=== PATIENT | female | born 1970 | race American Indian/Alaskan Native ===

== ENCOUNTER 2018-05-25 23:24 | Observation (INO) | payer MEDICAID ==
[2018-05-26 00:18] VITALS: O2SAT 97
[2018-05-26] MEDS ORDERED: Sodium Chloride 0.9% 1,000 ML IV STA (00:42)
--- NOTE | 2018-05-26 00:44 | ED PDOC ---
Arrival/HPI - General Chief Complaint: Dizziness/Lightheaded Time Seen by Provider: 05/26/18 00:31 Historian: Patient - History of Present Illness Narrative History of Present Illness (Text): 05/26/18 00:44 47 year old female smoker, whose past medical history includes anemia and HIV (viral load undetectable, CD4 700+), presents to the emergency department with lightheadedness and cough, for 2 days. Patient states on her way to work today, she felt very weak in her legs and entire body. Patient states she has not been eating well. Also reports heavy periods for the last 3 months but not currently on period now. Patient informs she took dayquil earlier today for her symptoms. Patient denies any headache, chest pain, shortness of breath, abdominal pain, nausea, vomiting, diarrhea, back pain, neck pain, or any other complaint. Time/Duration: Prior to Arrival, < week (2 days) Symptom Onset: Gradual Symptom Course: Unchanged Quality: Other Activities at Onset: Light Context: Walking Past Medical History - Provider Review Nursing Documentation Reviewed: Yes - Infectious Disease Hx of Infectious Diseases: None - Cardiac Hx Cardiac Disorders: No - Pulmonary Hx Respiratory Disorders: Yes Hx Asthma: Yes - Neurological Hx Neurological Disorder: No - HEENT Hx HEENT Disorder: No - Renal Hx Renal Disorder: No - Endocrine/Metabolic Hx Endocrine Disorders: No - Hematological/Oncological Hx Blood Disorders: Yes Hx Anemia: Yes - Integumentary Hx Dermatological Disorder: No - Musculoskeletal/Rheumatological Hx Musculoskeletal Disorders: No - Gastrointestinal Hx Gastrointestinal Disorders: No - Genitourinary/Gynecological Hx Genitourinary Disorders: No - Psychiatric Hx Psychophysiologic Disorder: No Hx Substance Use: No Family/Social History - Physician Review Nursing Documentation Reviewed: Yes Family/Social History: No Known Family HX Smoking Status: Heavy Smoker > 10 Cigarettes Daily Hx Alcohol Use: Yes Frequency of alcohol use: Socially Hx Substance Use: No Allergies/Home Meds Allergies/Adverse Reactions: Allergies Penicillins Allergy (Verified 05/26/18 00:18) URTICARIA Home Medications: Home Meds Medication Instructions Recorded Confirmed Albuterol HFA [Ventolin HFA 90 2 puff INH PRN PRN 05/26/18 05/26/18 mcg/actuation (8 g)] Emtricitab/Rilpiviri/Tenof [place] 1 tab PO DAILY 05/26/18 05/26/18 [Odefsey Tablet] Review of Systems - Physician Review All systems were reviewed & negative as marked: Yes - Review of Systems Respiratory: absent: SOB Neurological: absent: Headache Physical Exam Vital Signs Reviewed: Yes Vital Signs Temp Pulse Resp BP Pulse Ox 05/26/18 00:17 98.2 F 108 H 16 113/74 97 Temperature: Afebrile Blood Pressure: Normal Pulse: Tachycardic Respiratory Rate: Normal Appearance: Positive for: Well-Appearing, Non-Toxic, Comfortable Pain Distress: None Mental Status: Positive for: Alert and Oriented X 3 - Systems Exam Head: Present: Atraumatic, Normocephalic Pupils: Present: PERRL Extroacular Muscles: Present: EOMI Conjunctiva: Present: Normal Mouth: Present: Moist Mucous Membranes Neck: Present: Normal Range of Motion Respiratory/Chest: Present: Clear to Auscultation, Good Air Exchange. No: Respiratory Distress, Accessory Muscle Use Cardiovascular: Present: Normal S1, S2, Tachycardic. No: Murmurs Abdomen: No: Tenderness, Distention, Peritoneal Signs Back: Present: Normal Inspection Upper Extremity: Present: Normal Inspection. No: Cyanosis, Edema Lower Extremity: Present: Normal Inspection. No: Edema Neurological: Present: GCS=15, CN II-XII Intact, Speech Normal Skin: Present: Warm, Dry, Normal Color. No: Rashes Psychiatric: Present: Alert, Oriented x 3, Normal Insight, Normal Concentration Medical Decision Making ED Course and Treatment: 05/26/18 00:51 Impression: 47 year old female presents with dizziness, cough, and weakness. Plan: -- CMP -- CBC -- Chest X-ray -- Urine Culture -- Michaelfuenza A Paul -- Urinalysis -- Reassess and disposition Prior Visits: Notes and results from previous visits were reviewed. Progress Notes: 05/26/18 00:53 EKG reviewed by me, shows: Sinus tachycardia @106 bpm No STT wave changes CXR no acute disease. Patient with symptomatic anemia, will transfuse. Consented for blood transfusion. Dr. Benitez accepts to hospitalist service. - RAD Interpretation Radiology Orders: 05/26/18 00:42 CHEST PORTABLE [RAD] Stat - Medication Orders Current Medication Orders: Sodium Chloride (Sodium Chloride 0.9%) 1,000 mls @ 999 mls/hr IV .Q1H1M STA Stop: 05/26/18 01:42 Ketorolac Tromethamine (Toradol) 30 mg IVP STAT STA Stop: 05/26/18 00:43 - Scribe Statement The provider has reviewed the documentation as recorded by the Fernando Ledbetter Provider Scribe Attestation: All medical record entries made by the Scribe were at my direction and personally dictated by me. I have reviewed the chart and agree that the record accurately reflects my personal performance of the history, physical exam, medical decision making, and the department course for this patient. I have also personally directed, reviewed, and agree with the discharge instructions and disposition. Disposition/Present on Arrival - Present on Arrival Any Indicators Present on Arrival: No History of DVT/PE: No History of Uncontrolled Diabetes: No Urinary Catheter: No History of Decub. Ulcer: No History Surgical Site Infection Following: None - Disposition Have Diagnosis and Disposition been Completed?: Yes Diagnosis: Symptomatic anemia Disposition: HOSPITALIZED Disposition Time: 02:20 Patient Plan: Observation Condition: FAIR
[2018-05-26 01:15] LABS: URINE BILIRUBIN NEGATIVE (NEGATIVE); URINE BLOOD NEGATIVE (NEGATIVE); URINE GLUCOSE (UA) NEGATIVE (NEGATIVE); URINE LEUKOCYTE ESTERASE NEGATIVE Leu/uL (NEGATIVE); URINE PROTEIN TRACE mg/dL (<30 mg/dL); URINE UROBILINOGEN 0.2 E.U./dL (<1 E.U./dL)
[2018-05-26 01:18] LABS: BASO # 0.01 K/mm3 (0.0-2.0); BASO % 0.2 % (0.0-3.0); EOS % 0.7 % (1.5-5.0); GRAN # 2.29 (1.4-6.5); GRAN % 54.3 % (50.0-68.0); LYMPH # 1.4 (1.2-3.4); LYMPH % 33.2 % (22.0-35.0); MEAN CELL VOLUME 65.1 fl (80.0-105.0); MEAN CORPUSCULAR HEMOGLOBIN 18.1 pg (25.0-35.0); MEAN CORPUSCULAR HGB CONC 27.9 g/dl (31.0-37.0); MONO # 0.5 (0.1-0.6); MONO % 11.6 % (1.0-6.0); PLATELET COUNT 66 10^3/uL (120.0-450.0); RBC 4.96 10^6/uL (3.5-6.1); RED CELL DISTRIBUTION WIDTH 19.6 % (11.5-14.5); WHITE BLOOD COUNT 4.2 10^3/uL (4.5-11.0)
[2018-05-26 01:20] LABS: URINE APPEARANCE CLEAR (CLEAR); URINE COLOR YELLOW (YELLOW)
[2018-05-26 01:22] LABS: URINE BACTERIA FEW /hpf; URINE CALCIUM OXALATE CRYSTALS OCC /hpf; URINE EPITHELIAL CELLS MANY /hpf (0-5); URINE RBC 0 - 2 /hpf (0-2); URINE WBC 0 - 2 /hpf (0-6)
[2018-05-26 01:23] LABS: HCG,QUALITATIVE URINE NEGATIVE (NEGATIVE)
[2018-05-26 01:27] LABS: ALB/GLOB RATIO 1.1 (1.1-1.8); ALBUMIN 4.5 g/dL (3.0-4.8); ALT/SGPT 37 U/L (7-56); AST/SGOT 46 U/L (14-36); BLOOD UREA NITROGEN 10 mg/dL (7-21); CALCIUM 9.3 mg/dL (8.4-10.5); GFR NON-AFRICAN AMERICAN > 60
--- NOTE | 2018-05-26 02:40 | CP.PCM.HP ---
<Ruy Harris - Last Filed: 05/26/18 06:34> History of Present Illness - History of Present Illness History of Present Illness: PGY-1 H&P for Dr. Benitez CC: Dizziness and generalized fatigue HPI: Patient is a 47 year old female with past medical history of iron deficiency anemia, HIV on HAART, and asthma, who is presenting with dizziness and fatigue. Patient states that she started having these symptoms 3 days ago. Patient took Dayquil today without relief. Patient also states that the symptoms worsen when she got out of the shower. She also noticed today that her legs were feeling weak when she was walking to work. She also admits to having a cough and feels light-headed when she coughs too much. Patient states that she sees Dr. Valdez for her anemia and that her last iron transfusion was 1 year ago. She admits to be craving ice cubes all the time. She also states that her last menstrual period was 10 days ago with heavy flow. She states that her periods are usually heavy. Patient also complains of 2 episodes of watery diarrhea that started yesterday. She denies recent antibiotics used or ate food out of the ordinary. Patient states that she is compliant with her HIV medications. Patient also admits to having some shortness of breath and states that she has had it for more than 3 months. Patient denies any fevers, chills, chest pain, abdominal pain, nausea, vomiting, back pain, neck pain, or urinary symptoms. 12 system ROS reviewed and negative except mentioned in HPI. Medical History: HIV on HAART (viral load undetectable) as per patient CD4 of 745 6 months ago, anemia, and asthma Surgical History: denies Allergies: PCN Social History: Smokes 5 cigarettes per day for 5 years, drinks wine occasionally, denies drug use. Family History: maternal grandmother has diabetes OB history: Last menstrual period: 05/16/2018, with heavy flow. . Denies using contraception. Medications: Odefsey, Albuterol pump PMD/ID: Dr. valdez Heme/onc: Dr. Valdez Present on Admission - Present on Admission Any Indicators Present on Admission: No History of DVT/PE: No History of Uncontrolled Diabetes: No Urinary Catheter: No Decubitus Ulcer Present: No Review of Systems - Review of Systems All systems: reviewed and no additional remarkable complaints except Past Patient History - Infectious Disease Hx of Infectious Diseases: None - Past Social History Smoking Status: Heavy Smoker > 10 Cigarettes Daily - CARDIAC Hx Cardiac Disorders: No - PULMONARY Hx Respiratory Disorders: Yes Hx Asthma: Yes - NEUROLOGICAL Hx Neurological Disorder: No - HEENT Hx HEENT Problems: No - RENAL Hx Chronic Kidney Disease: No - ENDOCRINE/METABOLIC Hx Endocrine Disorders: No - HEMATOLOGICAL/ONCOLOGICAL Hx Blood Disorders: Yes Hx Anemia: Yes - INTEGUMENTARY Hx Dermatological Problems: No - MUSCULOSKELETAL/RHEUMATOLOGICAL Hx Musculoskeletal Disorders: No - GASTROINTESTINAL Hx Gastrointestinal Disorders: No - GENITOURINARY/GYNECOLOGICAL Hx Genitourinary Disorders: No - PSYCHIATRIC Hx Psychophysiologic Disorder: No Hx Substance Use: No - SURGICAL HISTORY Hx Surgeries: No Meds Allergies/Adverse Reactions: Allergies Allergy/AdvReac Type Severity Reaction Status Date / Time Penicillins Allergy URTICARIA Verified 05/26/18 00:18 Physical Exam - Constitutional Appears: Well, Non-toxic, No Acute Distress - Head Exam Head Exam: ATRAUMATIC, NORMAL INSPECTION - Eye Exam Eye Exam: EOMI, Normal appearance, PERRL. absent: Nystagmus, Scleral icterus - ENT Exam ENT Exam: Mucous Membranes Moist - Neck Exam Neck exam: Positive for: Normal Inspection - Respiratory Exam Respiratory Exam: Clear to Auscultation Bilateral, NORMAL BREATHING PATTERN. absent: Rales, Rhonchi, Wheezes, Respiratory Distress - Cardiovascular Exam Cardiovascular Exam: Tachycardia, +S1, +S2. absent: Gallop, Rubs, Systolic Murmur - GI/Abdominal Exam GI & Abdominal Exam: Normal Bowel Sounds, Soft. absent: Distended, Guarding, Tenderness - Extremities Exam Extremities exam: Positive for: normal inspection. Negative for: calf tenderness, pedal edema - Back Exam Back exam: NORMAL INSPECTION. absent: CVA tenderness (L), CVA tenderness (R) - Neurological Exam Neurological exam: Alert, CN II-XII Intact, Oriented x3 Additional comments: Muscle strength 5/5 in upper and lower extremities. Sensations intact bilaterally on upper and lower extremities. - Psychiatric Exam Psychiatric exam: Normal Affect, Normal Mood - Skin Skin Exam: Dry, Intact, Normal Color, Warm Results - Vital Signs Recent Vital Signs: Last Vital Signs Temp 98.2 F 05/26/18 00:17 Pulse 108 H 05/26/18 00:17 Resp 16 05/26/18 00:17 BP 113/74 01/22/19 00:17 Pulse Ox 97 05/26/18 00:17 - Labs Result Diagrams: 05/26/18 01:00 05/26/18 01:00 Labs: Laboratory Results - last 24 hr 05/26/18 05/26/18 05/26/18 01:00 01:00 01:00 WBC 4.2 L RBC 4.96 Hgb 9.0 L Hct 32.3 L MCV 65.1 L MCH 18.1 L MCHC 27.9 L RDW 19.6 H Plt Count 66 L Gran % 54.3 Lymph % (Auto) 33.2 Cooke % (Auto) 11.6 H Eos % (Auto) 0.7 L Baso % (Auto) 0.2 Gran # 2.29 Lymph # (Auto) 1.4 [place]oke # (Auto) 0.5 Eos # (Auto) 0.0 Baso # (Auto) 0.01 Sodium Potassium Chloride Carbon Dioxide Anion Gap BUN Creatinine Est GFR ( Amer) Est GFR (Non-Af Amer) Random Glucose Calcium Total Bilirubin AST ALT Alkaline Phosphatase Total Protein Albumin Globulin Albumin/Globulin Ratio Urine Color Yellow Urine Appearance Clear Urine pH 6.0 Ur Specific [place] >= 1.030 Urine Protein Trace H Urine Glucose (UA) Negative Urine Ketones Negative Urine Blood Negative Urine Nitrate Negative Urine Bilirubin Negative Urine Urobilinogen 0.2 Ur Leukocyte Esterase Negative Urine RBC 0 - 2 Urine WBC 0 - 2 Ur Epithelial Cells Many H Calcium Oxalate Crystal Occ Urine Bacteria Few Urine HCG, Qual Negative Influenza Typ A,B (EIA) Negative for flu a/b 05/26/18 01:00 WBC RBC Hgb Hct MCV MCH MCHC RDW Plt Count Gran % Lymph % (Auto) [place] % (Auto) Eos % (Auto) Baso % (Auto) Gran # Lymph # (Auto) [place] # (Auto) Eos # (Auto) Baso # (Auto) Sodium 138 Potassium 3.7 Chloride 104 Carbon Dioxide 27 Anion Gap 12 BUN 10 Creatinine 0.7 Est GFR ( Amer) > 60 Est GFR (Non-Af Amer) > 60 Random Glucose 99 Calcium 9.3 Total Bilirubin 0.2 AST 46 H ALT 37 Alkaline Phosphatase 118 Total Protein 8.5 H Albumin 4.5 Globulin 4.0 Albumin/Globulin Ratio 1.1 Urine Color Urine Appearance Urine pH Ur Specific [place] Urine Protein Urine Glucose (UA) Urine Ketones Urine Blood Urine Nitrate Urine Bilirubin Urine Urobilinogen Ur Leukocyte Esterase Urine RBC Urine WBC Ur Epithelial Cells Calcium Oxalate Crystal Urine Bacteria Urine HCG, Qual Influenza Typ A,B (EIA) Assessment & Plan - Assessment and Plan (Free Text) Assessment: Patient is a 47 year old female with past medical history of iron deficiency anemia, HIV on HAART, and asthma, who is presenting with dizziness and fatigue. Plan: Palpitations, dizziness, and b/l leg weakness - Likely 2/2 symptomatic anemia, dehydration, or vasovagal response to hot shower and coughing - Hb/Hct: 9.0/32.3 - 2 units of PRBC ordered - Orthostatic blood pressure - Wilton-Hallpike maneuver was negative - Iron studies: Iron 12, TIBC 519, % sat 2 - Folate, vit B12: pending - Reticulocyte count: 1.01 - Robitussin w/ codeine PRN for cough - Zofran 4mg IV Q6 PRN Sinus tachycardia - HR: 100-110 - Well's score: 1.5, PE unlikely - PERC score: 1 - CXR: No acute disease - EKG: Sinus tachycardia @106 bpm Pancytopenia with iron deficiency, symptomatic anemia - Likely 2/2 HIV infection - No signs of acute bleeding - Check stool heme occult - Continue to monitor and trend CBC - For pancytopenia 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 Eli Harris, PGY-1 <Shreyas Benitez - Last Filed: 05/26/18 06:39> Results - Vital Signs Recent Vital Signs: Last Vital Signs Temp 98 F 05/26/18 05:57 Pulse 87 05/26/18 05:57 Resp 20 05/26/18 05:57 BP 133/80 05/26/18 05:57 Pulse Ox 97 05/26/18 00:17 - Labs Result Diagrams: 05/26/18 01:00 05/26/18 01:00 Labs: Laboratory Results - last 24 hr 05/26/18 05/26/1805/26/19 01:00 01:00 01:00 WBC 4.2 L RBC 4.96 Hgb 9.0 L Hct 32.3 L MCV 65.1 L MCH 18.1 L MCHC 27.9 L RDW 19.6 H Plt Count 66 L Gran % 54.3 Lymph % (Auto) 33.2 [place] % (Auto) 11.6 H Eos % (Auto) 0.7 L Baso % (Auto) 0.2 Gran # 2.29 Lymph # (Auto) 1.4 [place] # (Auto) 0.5 Eos # (Auto) 0.0 Baso # (Auto) 0.01 Retic Count Sodium Potassium Chloride Carbon Dioxide Anion Gap BUN Creatinine Est GFR ( Amer) Est GFR (Non-Af Amer) Random Glucose Calcium Iron TIBC % Saturation Total Bilirubin AST ALT Alkaline Phosphatase Total Protein Albumin Globulin Albumin/Globulin Ratio Urine Color Yellow Urine Appearance Clear Urine pH 6.0 Ur Specific [place] >= 1.030 Urine Protein Trace H Urine Glucose (UA) Negative Urine Ketones Negative Urine Blood Negative Urine Nitrate Negative Urine Bilirubin Negative Urine Urobilinogen 0.2 Ur Leukocyte Esterase Negative Urine RBC 0 - 2 Urine WBC 0 - 2 Ur Epithelial Cells Many H Calcium Oxalate Crystal Occ Urine Bacteria Few Urine HCG, Qual Negative Influenza Typ A,B (EIA) Negative for flu a/b Blood Type Antibody Screen Crossmatch BBK History Checked 05/26/18 05/26/18 05/26/18 01:00 01:00 01:00 WBC RBC Hgb Hct MCV MCH MCHC RDW Plt Count Gran % Lymph % (Auto) [place] % (Auto) Eos % (Auto) Baso % (Auto) Gran # Lymph # (Auto) [place] # (Auto) Eos # (Auto) Baso # (Auto) Retic Count 1.01 Sodium 138 Potassium 3.7 Chloride 104 Carbon Dioxide 27 Anion Gap 12 BUN 10 Creatinine 0.7 Est GFR ( Amer) > 60 Est GFR (Non-Af Amer) > 60 Random Glucose 99 Calcium 9.3 Iron 12 L TIBC 519 H % Saturation 2 L Total Bilirubin 0.2 AST 46 H ALT 37 Alkaline Phosphatase 118 Total Protein 8.5 H Albumin 4.5 Globulin 4.0 Albumin/Globulin Ratio 1.1 Urine Color Urine Appearance Urine pH Ur Specific [place] Urine Protein Urine Glucose (UA) Urine Ketones Urine Blood Urine Nitrate Urine Bilirubin Urine Urobilinogen Ur Leukocyte Esterase Urine RBC Urine WBC Ur Epithelial Cells Calcium Oxalate Crystal Urine Bacteria Urine HCG, Qual Influenza Typ A,B (EIA) Blood Type Antibody Screen Crossmatch BBK History Checked 05/26/18 03:10 WBC RBC Hgb Hct MCV MCH MCHC RDW Plt Count Gran % Lymph % (Auto) [place] % (Auto) Eos % (Auto) Baso % (Auto) Gran # Lymph # (Auto) [place] # (Auto) Eos # (Auto) Baso # (Auto) Retic Count Sodium Potassium Chloride Carbon Dioxide Anion Gap BUN Creatinine Est GFR ( Amer) Est GFR (Non-Af Amer) Random Glucose Calcium Iron TIBC % Saturation Total Bilirubin AST ALT Alkaline Phosphatase Total Protein Albumin Globulin Albumin/Globulin Ratio Urine Color Urine Appearance Urine pH Ur Specific [place] Urine Protein Urine Glucose (UA) Urine Ketones Urine Blood Urine Nitrate Urine Bilirubin Urine Urobilinogen Ur Leukocyte Esterase Urine RBC Urine WBC Ur Epithelial Cells Calcium Oxalate Crystal Urine Bacteria Urine HCG, Qual Influenza Typ A,B (EIA) Blood Type O POSITIVE Antibody Screen Negative Crossmatch See Detail BBK History Checked No verified bt Attending/Attestation - Attestation I have personally seen and examined this patient.: Yes I have fully participated in the care of the patient.: Yes I have reviewed all pertinent clinical information: Yes
[2018-05-26 03:37] LABS: IRON 12 ug/dL (45-180)
[2018-05-26 03:48] LABS: % IRON SATURATION 2 % (20-55); TOTAL IRON BINDING CAPACITY 519 ug/dL (265-497)
[2018-05-26] MEDS ORDERED: Albuterol HFA 90 mcg/actuation (8 g) INH PRN (04:39)
[2018-05-26] MEDS: guaiFENesin-Codeine 100-10mg/5ml Syrup (5 ml) UD PO PRN ×2 (04:41→08:42)
[2018-05-26] MEDS ORDERED: Albuterol 0.083% Inhal Sol (2.5 mg/3 mL) UD IH PRN ×2 (04:52→12:07)
[2018-05-26 04:59] VITALS: BMI 32.9
--- NOTE | 2018-05-26 07:28 | RAD ---
Date of service: 05/26/2018 HISTORY: cough, lightheaded, weakness COMPARISON: No prior. FINDINGS: LUNGS: No active pulmonary disease. PLEURA: No significant pleural effusion identified, no pneumothorax apparent. CARDIOVASCULAR: No aortic atherosclerotic calcification present. Normal cardiac size. No pulmonary vascular congestion. OSSEOUS STRUCTURES: No significant abnormalities. VISUALIZED UPPER ABDOMEN: Normal. OTHER FINDINGS: None. IMPRESSION: No active disease.
[2018-05-26] MEDS ORDERED: Sodium Chloride 0.9% 1,000 ML IV SCH (07:30)
[2018-05-26] MEDS: Levalbuterol 0.63 MG/3 ML Inhal Soln UD IH SCH ×2 (07:50→13:55)
--- NOTE | 2018-05-26 09:39 | CP.PCM.CON ---
<Kel Castellon - Last Filed: 05/26/18 12:38> History of Present Illness - History of Present Illness History of Present Illness: Infectious disease consult note: 47 M with PMHx of iron deficiency anemia, HIV on HAART therapy (last knows CD4 was >700), and asthma, who is presenting with dizziness, fatigue, cough, and diarrhea. Patient states that her symptoms started 2 days and has gotten worse. Than she tried to goto work yesterday when she felt very faint with her legs weak so she came to the ED. She states that she took dayquil however it did not provide any relief. She also complains of 2 episodes of non bloody diarrhea. Denies any other complaints. 12 system ROS reviewed and negative other than stated above Medical History: HIV CD4 of >700 six months ago, anemia, and asthma SHx: denies Allergies: PCN Social History: Smokes 5 cig/day for 5 years, drinks wine occasionally, denies drug use. Family History: denies Medications: refer to MAR Review of Systems - Review of Systems All systems: reviewed and no additional remarkable complaints except Past Patient History - Infectious Disease Hx of Infectious Diseases: None - Past Social History Smoking Status: Heavy Smoker > 10 Cigarettes Daily - CARDIAC Hx Cardiac Disorders: No - PULMONARY Hx Respiratory Disorders: Yes Hx Asthma: Yes - NEUROLOGICAL Hx Neurological Disorder: No - HEENT Hx HEENT Problems: No - RENAL Hx Chronic Kidney Disease: No - ENDOCRINE/METABOLIC Hx Endocrine Disorders: No - HEMATOLOGICAL/ONCOLOGICAL Hx Blood Disorders: Yes Hx Anemia: Yes - INTEGUMENTARY Hx Dermatological Problems: No - MUSCULOSKELETAL/RHEUMATOLOGICAL Hx Musculoskeletal Disorders: No - GASTROINTESTINAL Hx Gastrointestinal Disorders: No - GENITOURINARY/GYNECOLOGICAL Hx Genitourinary Disorders: No - PSYCHIATRIC Hx Psychophysiologic Disorder: No Hx Substance Use: No - SURGICAL HISTORY Hx Surgeries: No Meds Allergies/Adverse Reactions: Allergies Allergy/AdvReac Type Severity Reaction Status Date / Time Penicillins Allergy URTICARIA Verified 05/26/18 00:18 - Medications Medications: Current Medications Albuterol Sulfate (Albuterol 0.083% Inhal Rody (2.5 Mg/3 Ml) Ud) 2.5 mg IH [id number] PRN PRN Reason: Shortness of Breath Guaifenesin/Codeine Phosphate (Robitussin W/Codeine) 5 ml PO Q4H PRN PRN Reason: Cough and congestion Last Admin: 05/26/18 08:42 Dose: 5 ml Sodium Chloride (Sodium Chloride 0.9%) 1,000 mls @ 100 mls/hr IV .Q10H [facility] Levalbuterol HCl (Xopenex) 0.63 mg IH TIDRESP DERRICK Last Admin: 05/26/18 07:50 Dose: 0.63 mg Emtricitab/Rilpiviri /Tenof Ala [Odefsey Tablet] 1 Tab (Home Med) 1 tab PO DAILY [facility] Ondansetron HCl (Zofran Inj) 4 mg IVP Q6 PRN PRN Reason: Nausea/Vomiting Physical Exam - Constitutional Appears: No Acute Distress - Head Exam Head Exam: ATRAUMATIC, NORMOCEPHALIC - Eye Exam Eye Exam: EOMI - ENT Exam ENT Exam: Mucous Membranes Moist - Neck Exam Neck exam: Positive for: Normal Inspection - Respiratory Exam Respiratory Exam: Clear to Auscultation Bilateral (no r/r/w) - Cardiovascular Exam Cardiovascular Exam: RRR, +S1, +S2 - GI/Abdominal Exam GI & Abdominal Exam: Normal Bowel Sounds, Soft - Extremities Exam Extremities exam: Negative for: calf tenderness, pedal edema - Neurological Exam Neurological exam: Alert, CN II-XII Intact, Normal Gait - Psychiatric Exam Psychiatric exam: Normal Mood - Skin Skin Exam: Dry, Warm Results - Vital Signs Recent Vital Signs: Last Vital Signs Temp 98.2 F 05/26/18 09:32 Pulse 80 05/26/18 09:32 Resp 18 05/26/18 09:32 BP 130/72 05/26/18 09:32 Pulse Ox 97 05/26/18 07:58 - Labs Result Diagrams: 05/26/18 01:00 05/26/18 01:00 Labs: Laboratory Results - last 24 hr 05/26/18 05/26/18 05/26/18 01:00 01:00 01:00 WBC 4.2 L RBC 4.96 Hgb 9.0 L Hct 32.3 L MCV 65.1 L MCH 18.1 L MCHC 27.9 L RDW 19.6 H Plt Count 66 L Gran % 54.3 Lymph % (Auto) 33.2 [place] % (Auto) 11.6 H Eos % (Auto) 0.7 L Baso % (Auto) 0.2 Gran # 2.29 Lymph # (Auto) 1.4 [place] # (Auto) 0.5 Eos # (Auto) 0.0 Baso # (Auto) 0.01 Retic Count Sodium Potassium Chloride Carbon Dioxide Anion Gap BUN Creatinine Est GFR ( Amer) Est GFR (Non-Af Amer) Random Glucose Calcium Iron TIBC % Saturation Total Bilirubin AST ALT Alkaline Phosphatase Total Protein Albumin Globulin Albumin/Globulin Ratio Urine Color Yellow Urine Appearance Clear Urine pH 6.0 Ur Specific [place] >= 1.030 Urine Protein Trace H Urine Glucose (UA) Negative Urine Ketones Negative Urine Blood Negative Urine Nitrate Negative Urine Bilirubin Negative Urine Urobilinogen 0.2 Ur Leukocyte Esterase Negative Urine RBC 0 - 2 Urine WBC 0 - 2 Ur Epithelial Cells Many H Calcium Oxalate Crystal Occ Urine Bacteria Few Urine HCG, Qual Negative Influenza Typ A,B (EIA) Negative for flu a/b Blood Type Blood Type Confirm Antibody Screen Crossmatch BBK History Checked 05/26/18 05/26/18 05/26/18 01:00 01:00 01:00 WBC RBC Hgb Hct MCV MCH MCHC RDW Plt Count Gran % Lymph % (Auto) [place] % (Auto) Eos % (Auto) Baso % (Auto) Gran # Lymph # (Auto) [place] # (Auto) Eos # (Auto) Baso # (Auto) Retic Count 1.01 Sodium 138 Potassium 3.7 Chloride 104 Carbon Dioxide 27 Anion Gap 12 BUN 10 Creatinine 0.7 Est GFR ( Amer) > 60 Est GFR (Non-Af Amer) > 60 Random Glucose 99 Calcium 9.3 Iron 12 L TIBC 519 H % Saturation 2 L Total Bilirubin 0.2 AST 46 H ALT 37 Alkaline Phosphatase 118 Total Protein 8.5 H Albumin 4.5 Globulin 4.0 Albumin/Globulin Ratio 1.1 Urine Color Urine Appearance Urine pH Ur Specific [place] Urine Protein Urine Glucose (UA) Urine Ketones Urine Blood Urine Nitrate Urine Bilirubin Urine Urobilinogen Ur Leukocyte Esterase Urine RBC Urine WBC Ur Epithelial Cells Calcium Oxalate Crystal Urine Bacteria Urine HCG, Qual Influenza Typ A,B (EIA) Blood Type Blood Type Confirm Antibody Screen Crossmatch BBK History Checked 05/26/18 05/26/18 03:10 04:35 WBC RBC Hgb Hct MCV MCH MCHC RDW Plt Count Gran % Lymph % (Auto) [place] % (Auto) Eos % (Auto) Baso % (Auto) Gran # Lymph # (Auto) [place] # (Auto) Eos # (Auto) Baso # (Auto) Retic Count Sodium Potassium Chloride Carbon Dioxide Anion Gap BUN Creatinine Est GFR ( Amer) Est GFR (Non-Af Amer) Random Glucose Calcium Iron TIBC % Saturation Total Bilirubin AST ALT Alkaline Phosphatase Total Protein Albumin Globulin Albumin/Globulin Ratio Urine Color Urine Appearance Urine pH Ur Specific [place] Urine Protein Urine Glucose (UA) Urine Ketones Urine Blood Urine Nitrate Urine Bilirubin Urine Urobilinogen Ur Leukocyte Esterase Urine RBC Urine WBC Ur Epithelial Cells Calcium Oxalate Crystal Urine Bacteria Urine HCG, Qual Influenza Typ A,B (EIA) Blood Type O POSITIVE Blood Type Confirm O POSITIVE Antibody Screen Negative Crossmatch See Detail BBK History Checked No verified bt Assessment & Plan - Assessment and Plan (Free Text) Assessment: 47 M with PMHx of iron deficiency anemia, HIV on HAART therapy (last knows CD4 was >700), and asthma, who is presenting with dizziness, fatigue, cough, and diarrhea. Patient being treated for symptomatic anemia with PRBC. - F/u HIV and CD4 counts - F/u Diarrhea work up including cryptosporidium and fecal leukocytes - Cont home Odefsey - Monitor off abx at this time - Pancytopenia - rec Heme/Onc consult - F/u hepatitis panel - Cont to monitor Case and plan was reviewed and discussed with Dr Walsh <Kennedy Walsh - Last Filed: 05/26/18 14:46> Meds - Medications Medications: Current Medications Albuterol Sulfate (Albuterol 0.083% Inhal Rody (2.5 Mg/3 Ml) Ud) 2.5 mg IH [id number] PRN PRN Reason: Shortness of Breath Last Admin: 05/26/18 12:07 Dose: 2.5 mg Arformoterol Tartrate (Brovana) 15 mcg IH [id number] [facility] Benzonatate (Tessalon Perles) 100 mg PO TID [facility] Budesonide (Pulmicort Respules) 0.5 mg IH [id number] DERRICK Guaifenesin/Codeine Phosphate (Robitussin W/Codeine) 5 ml PO Q4H PRN PRN Reason: Cough and congestion Last Admin: 05/26/18 08:42 Dose: 5 ml Sodium Chloride (Sodium Chloride 0.9%) 1,000 mls @ 100 mls/hr IV .Q10H [facility] Levalbuterol HCl (Xopenex) 0.63 mg IH TIDRESP DERRICK Last Admin: 05/26/18 13:55 Dose: 0.63 mg Emtricitab/Rilpiviri /Tenof Ala [Odefsey Tablet] 1 Tab (Home Med) 1 tab PO DAILY [facility] Ondansetron HCl (Zofran Inj) 4 mg IVP Q6 PRN PRN Reason: Nausea/Vomiting Results - Vital Signs Recent Vital Signs: Last Vital Signs Temp 98.0 F 05/26/18 14:23 Pulse 100 H 05/26/18 14:23 Resp 18 05/26/18 14:23 BP 122/71 05/26/18 14:23 Pulse Ox 97 05/26/18 07:58 - Labs Result Diagrams: 05/26/18 01:00 05/26/18 01:00 Labs: Laboratory Results - last 24 hr 05/26/18 05/26/18 05/26/18 01:00 01:00 01:00 WBC 4.2 L RBC 4.96 Hgb 9.0 L Hct 32.3 L MCV 65.1 L MCH 18.1 L MCHC 27.9 L RDW 19.6 H Plt Count 66 L Gran % 54.3 Lymph % (Auto) 33.2 [place] % (Auto) 11.6 H Eos % (Auto) 0.7 L Baso % (Auto) 0.2 Gran # 2.29 Lymph # (Auto) 1.4 [place] # (Auto) 0.5 Eos # (Auto) 0.0 Baso # (Auto) 0.01 Retic Count Sodium Potassium Chloride Carbon Dioxide Anion Gap BUN Creatinine Est GFR ( Amer) Est GFR (Non-Af Amer) Random Glucose Calcium Iron TIBC % Saturation Transferrin Ferritin Total Bilirubin AST ALT Alkaline Phosphatase Lactate Dehydrogenase Total Protein Albumin Globulin Albumin/Globulin Ratio Vitamin B12 Folate Urine Color Yellow Urine Appearance Clear Urine pH 6.0 Ur Specific [place] >= 1.030 Urine Protein Trace H Urine Glucose (UA) Negative Urine Ketones Negative Urine Blood Negative Urine Nitrate Negative Urine Bilirubin Negative Urine Urobilinogen 0.2 Ur Leukocyte Esterase Negative Urine RBC 0 - 2 Urine WBC 0 - 2 Ur Epithelial Cells Many H Calcium Oxalate Crystal Occ Urine Bacteria Few Urine HCG, Qual Negative Influenza Typ A,B (EIA) Negative for flu a/b Blood Type Blood Type Confirm Antibody Screen Crossmatch BBK History Checked 05/26/18 05/26/18 05/26/18 01:00 01:00 01:00 WBC RBC Hgb Hct MCV MCH MCHC RDW Plt Count Gran % Lymph % (Auto) [place] % (Auto) Eos % (Auto) Baso % (Auto) Gran # Lymph # (Auto) [place] # (Auto) Eos # (Auto) Baso # (Auto) Retic Count Sodium 138 Potassium 3.7 Chloride 104 Carbon Dioxide 27 Anion Gap 12 BUN 10 Creatinine 0.7 Est GFR ( Amer) > 60 Est GFR (Non-Af Amer) > 60 Random Glucose 99 Calcium 9.3 Iron 12 L TIBC 519 H % Saturation 2 L Transferrin 415.78 H Ferritin Total Bilirubin 0.2 AST 46 H ALT 37 Alkaline Phosphatase 118 Lactate Dehydrogenase Total Protein 8.5 H Albumin 4.5 Globulin 4.0 Albumin/Globulin Ratio 1.1 Vitamin B12 Folate Urine Color Urine Appearance Urine pH Ur Specific [place] Urine Protein Urine Glucose (UA) Urine Ketones Urine Blood Urine Nitrate Urine Bilirubin Urine Urobilinogen Ur Leukocyte Esterase Urine RBC Urine WBC Ur Epithelial Cells Calcium Oxalate Crystal Urine Bacteria Urine HCG, Qual Influenza Typ A,B (EIA) Blood Type Blood Type Confirm Antibody Screen Crossmatch BBK History Checked 05/26/18 05/26/18 05/26/18 01:00 01:00 03:10 WBC RBC Hgb Hct MCV MCH MCHC RDW Plt Count Gran % Lymph % (Auto) [place] % (Auto) Eos % (Auto) Baso % (Auto) Gran # Lymph # (Auto) [place] # (Auto) Eos # (Auto) Baso # (Auto) Retic Count 1.01 Sodium Potassium Chloride Carbon Dioxide Anion Gap BUN Creatinine Est GFR ( Amer) Est GFR (Non-Af Amer) Random Glucose Calcium Iron TIBC % Saturation Transferrin Ferritin 7.2 Total Bilirubin AST ALT Alkaline Phosphatase Lactate Dehydrogenase Total Protein Albumin Globulin Albumin/Globulin Ratio Vitamin B12 747 Folate > 20.0 Urine Color Urine Appearance Urine pH Ur Specific [place] Urine Protein Urine Glucose (UA) Urine Ketones Urine Blood Urine Nitrate Urine Bilirubin Urine Urobilinogen Ur Leukocyte Esterase Urine RBC Urine WBC Ur Epithelial Cells Calcium Oxalate Crystal Urine Bacteria Urine HCG, Qual Influenza Typ A,B (EIA) Blood Type O POSITIVE Blood Type Confirm Antibody Screen Negative Crossmatch See Detail BBK History Checked No verified bt 05/26/18 05/26/18 04:35 10:30 WBC RBC Hgb Hct MCV MCH MCHC RDW Plt Count Gran % Lymph % (Auto) [place] % (Auto) Eos % (Auto) Baso % (Auto) Gran # Lymph # (Auto) [place] # (Auto) Eos # (Auto) Baso # (Auto) Retic Count Sodium Potassium Chloride Carbon Dioxide Anion Gap BUN Creatinine Est GFR ( Amer) Est GFR (Non-Af Amer) Random Glucose Calcium Iron TIBC % Saturation Transferrin Ferritin Total Bilirubin AST ALT Alkaline Phosphatase Lactate Dehydrogenase 420 Total Protein Albumin Globulin Albumin/Globulin Ratio Vitamin B12 Folate Urine Color Urine Appearance Urine pH Ur Specific [place] Urine Protein Urine Glucose (UA) Urine Ketones Urine Blood Urine Nitrate Urine Bilirubin Urine Urobilinogen Ur Leukocyte Esterase Urine RBC Urine WBC Ur Epithelial Cells Calcium Oxalate Crystal Urine Bacteria Urine HCG, Qual Influenza Typ A,B (EIA) Blood Type Blood Type Confirm O POSITIVE Antibody Screen Crossmatch BBK History Checked Assessment & Plan - Assessment and Plan (Free Text) Assessment: Infectious diseases Attending Physician Attestation Patient seen and examined, discussed with medical translator. I have reviewed the patient's history of present illness, past medical, social, personal and family histories, pertinent physical exam findings, course so far in this hospital admission, pertinent laboratory and imaging results. I agree with the above findings, assessment and plan. In addition, continue cART for chronic HIV infection. will monitor patient off antibiotics, monitor to see if patient develops diarrhea and will do work up if she does.
[2018-05-26] MEDS ORDERED: [UNRECOGNIZED DRUG - OTHER] PO SCH (10:00)
[2018-05-26] MEDS ORDERED: guaiFENesin 200 mg/10 ml Syrup UD PO PRN (11:27)
[2018-05-26 12:18] LABS: FERRITIN 7.2 ng/mL
[2018-05-26 12:49] LABS: FOLATE > 20.0 ng/mL
[2018-05-26 14:22] VITALS: BP 122/71; PULSE 100; TEMP 98
[2018-05-26 14:23] VITALS: RESP 18
--- NOTE | 2018-05-26 15:45 | CARD ---
APPROVED REPORT Date of service: 05/26/2018 EXAM: Two-dimensional and M-mode echocardiogram with Doppler and color Doppler. INDICATION LV Function:SystolicDiastolic 2D DIMENSIONS Left Atrium (2D)3.6 (1.6-4.0cm)IVSd1.3 (0.7-1.1cm) LVDd4.3 (3.9-5.9cm)PWd1.3 (0.7-1.1cm) LVDs2.8 (2.5-4.0cm)FS (%) 33.6 % LVEF (%)62.7 (>50%) M-Mode DIMENSIONS Aortic Root2.50 (2.2-3.7cm)Aortic Cusp Exc.1.90 (1.5-2.0cm) Aortic Valve AoV Peak Cjhjcxvd207.0cm/Natali Peak GR.12mmHg Mitral Valve MV E Ugmzmkwc40.2cm/sMV A Mddhoqdw960.0cm/sE/A ratio0.9 TDI E/Lateral E'0.0E/Medial E'0.0 Tricuspid Valve TR Peak [id number]/sRAP [id number] Peak Gr.11mmHg [id number] LEFT VENTRICLE The left ventricle is normal size. There is borderline concentric left ventricular hypertrophy. The left ventricular function is normal. The left ventricular ejection fraction is within the normal range. There is normal LV segmental wall motion. Transmitral Doppler flow pattern is Grade I-abnormal relaxation pattern. RIGHT VENTRICLE The right ventricle is normal size. There is normal right ventricular wall thickness. The right ventricular systolic function is normal. ATRIA The left atrium size is normal. The right atrium size is normal. AORTIC VALVE The aortic valve is not well visualized. No aortic regurgitation is present. There is no aortic valvular stenosis. MITRAL VALVE The mitral valve is normal in structure. There is no mitral valve regurgitation noted. There is no mitral valve stenosis. TRICUSPID VALVE There is trace tricuspid regurgitation. PULMONIC VALVE There is no pulmonic valvular regurgitation. GREAT VESSELS The aortic root is normal in size. The IVC is normal in size and collapses >50% with inspiration. PERICARDIAL EFFUSION There is a trace pericardial effusion. <Conclusion> There is borderline concentric left ventricular hypertrophy. The left ventricular function is normal. The left ventricular ejection fraction is within the normal range. There is normal LV segmental wall motion. Transmitral Doppler flow pattern is Grade I-abnormal relaxation pattern. There is a trace pericardial effusion.
[2018-05-26 16:22] LABS: BASO # 0.01 K/mm3 (0.0-2.0); BASO % 0.3 % (0.0-3.0); EOS % 0.6 % (1.5-5.0); GRAN % 59.1 % (50.0-68.0); HEMOGLOBIN 8.9 g/dL (12.0-16.0); LYMPH % 29.3 % (22.0-35.0); MEAN CELL VOLUME 68.4 fl (80.0-105.0); MEAN CORPUSCULAR HEMOGLOBIN 19.7 pg (25.0-35.0); MEAN CORPUSCULAR HGB CONC 28.8 g/dl (31.0-37.0); MONO # 0.4 (0.1-0.6); MONO % 10.7 % (1.0-6.0); RBC 4.52 10^6/uL (3.5-6.1); RED CELL DISTRIBUTION WIDTH 22.2 % (11.5-14.5); WHITE BLOOD COUNT 3.6 10^3/uL (4.5-11.0)
[2018-05-26 16:27] LABS: PLATELET COUNT 31 10^3/uL (120.0-450.0)
[2018-05-26 17:10] LABS: BASO # 0.01 K/mm3 (0.0-2.0); BASO % 0.3 % (0.0-3.0); EOS % 0.6 % (1.5-5.0); GRAN # 1.84 (1.4-6.5); GRAN % 57.3 % (50.0-68.0); LYMPH % 31.8 % (22.0-35.0); MEAN CELL VOLUME 68.1 fl (80.0-105.0); MEAN CORPUSCULAR HEMOGLOBIN 19.8 pg (25.0-35.0); MONO # 0.3 (0.1-0.6); PLATELET COUNT 56 10^3/uL (120.0-450.0); RBC 4.55 10^6/uL (3.5-6.1); RED CELL DISTRIBUTION WIDTH 22.2 % (11.5-14.5); WHITE BLOOD COUNT 3.2 10^3/uL (4.5-11.0)
[2018-05-26 17:21] LABS: PLATELET ESTIMATE 62 (NORMAL)
[2018-05-26 17:21] LABS: ALBUMIN 3.6 g/dL (3.0-4.8); ALT/SGPT 38 U/L (7-56); AST/SGOT 37 U/L (14-36); BLOOD UREA NITROGEN 7 mg/dL (7-21); CALCIUM 8.6 mg/dL (8.4-10.5); GFR NON-AFRICAN AMERICAN > 60
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
[2018-05-26] MEDS ORDERED: Influenza Vaccine 60 mcg/0.5 mL SYR (4YR UP) IM ONE (18:13)
[2018-05-26] MEDS ORDERED: Pneumococcal 23-Valent Vaccine IM ONE (18:13)
[2018-05-26] MEDS ORDERED: Arformoterol 15 mcg/2 ml Inh Sol IH SCH (20:00)
[2018-05-26] MEDS ORDERED: Budesonide 0.5 mg/2 ml Inhal Susp UD IH SCH (20:00)
[2018-05-26 21:04] LABS: HEPATITIS B SURFACE AG Negative (NEGATIVE)
[2018-05-26 21:09] LABS: HEPATITIS A IGM NEGATIVE (NEGATIVE); HEPATITIS B CORE AB NEGATIVE (NEGATIVE)
[2018-05-26 21:21] LABS: HEPATITIS C ANTIBODY NEGATIVE (NEGATIVE)
--- NOTE | 2018-05-26 23:38 | CARD ---
APPROVED REPORT Date of service: 05/26/2018 EKG Measurement Heart [id number] <Conclusion> Sinus tachycardia Otherwise normal ECG
[2018-05-28 18:54] LABS: % CD4 (T HELPER CELL) 40 Percent (30-61); % CD8 (SUPPRESSOR T CELL) 35 Percent (12-42); ABSOLUTE CD4 CELLS 418 Cells/mcL (490-1740); ABSOLUTE CD8 CELLS 365 Cells/mcL (180-1170); ABSOLUTE LYMPHOCYTES 1058 Cells/mcL (850-3900); HELPER/SUPPRESSOR RATIO 1.15 Ratio (0.86-5.00)
--- NOTE | 2018-05-28 19:00 | PQF ---
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 Please specify the type and severity of asthma and indic ate if this is associated with exacerbation or status asthmaticus. Such as: -- Mild intermittent -- Mild persistent -- Moderate persistent -- Severe persistent -- Exercise induced bronchospasm -- Cough variant asthma -- Other, please specify The patient's Clinical Indicators include: Please see query. Thank you. Query created by: Tsering Don on 05/28/2018 6:37 PM Electronically signed by: Nereida Blancas MD 05/28/2018 6:58 PM
== END 2018-05-26 19:00 | disposition home or self-care (01) ==
LOC: ED 23:24 → ERH 05-26 02:49 → 3RNO 05-26 03:38
PROVIDERS: ADMIT Internal Medicine; ATTEND Internal Medicine
DX: D50.9 Iron deficiency anemia, unspecified (principal); D61.818 Other pancytopenia; Z21 Asymptomatic human immunodeficiency virus [HIV] infection status; E86.0 Dehydration; J45.20 Mild intermittent asthma, uncomplicated; F17.210 Nicotine dependence, cigarettes, uncomplicated; N92.0 Excessive and frequent menstruation with regular cycle; Z83.3 Family history of diabetes mellitus; B34.9 Viral infection, unspecified; Z88.0 Allergy status to penicillin; Z23 Encounter for immunization
CPT/HCPCS: 36430; 71045; 80053; 80074; 81001; 81025; 82607; 82728; 82746; 83615; 84466; 84703; 85025; 85044; 86360; 86850; 86900; 86920; 87086; 87536; 87804; 90471; 90674; 90732; 93005; 93306; 94640; 94760; 96361; 96374; 99285; G0378; J1885; J7030; P9016